=== PATIENT | female | born 1940 | race Caucasian/White ===

== ENCOUNTER 2023-08-10 10:38 | Emergency (ER) | payer OTHER ==
[~2023-08-10] VITALS: Ht 152.4 cm; Wt 55.3 kg
[~2023-08-10 10:38] MED LIST: EVI60 PO; LEVO0.5P PO; LOSA-272 PO; SIMV-31 PO; ZOLP10TA1
[2023-08-10 10:57] VITALS: BP 141/72; PULSE 94; RESP 18; TEMP 99.6; O2SAT 93
[2023-08-10] MEDS ORDERED: ACETAMINOPHEN EXTRA STRENGTH 500 MG TAB PO ONE (11:55)
[2023-08-10 12:06] LABS: FLU A ANTIGEN negative (NEGATIVE); FLU B ANTIGEN negative (NEGATIVE)
[2023-08-10 12:06] LABS: BASOPHILS # (AUTO) 0.1 K/uL (0.00-0.22); EOSINOPHILS # (AUTO) 0.1 K/uL (0-0.4); EOSINOPHILS % (AUTO) 1.5 % (0.0-4.0); HEMOGLOBIN 14.3 g/dL (12.0-16.0); LYMPHOCYTES # (AUTO) 1.1 K/uL (2.5-16.5); LYMPHOCYTES % (AUTO) 18.2 % (20.5-51.1); MEAN CORPUSCULAR HEMOGLOBIN 30 pg (27-31); MEAN CORPUSCULAR HGB CONC 34 g/dL (33-37); MEAN CORPUSCULAR VOLUME 88.9 fL (80-94); MONOCYTES # (AUTO) 1.1 K/uL (0.8-1.0); MONOCYTES % (AUTO) 17.9 % (1.7-9.3); NEUTROPHILS # (AUTO) 3.7 K/uL (1.8-7.7); NEUTROPHILS % (AUTO) 61.4 % (42.2-75.2); PLATELET COUNT (AUTO) 167 K/uL (140-450); RED BLOOD CELL COUNT(AUTO) 4.73 MIL/uL (4.20-5.40); RED CELL DISTRIBUTION WIDTH 13.1 % (11.6-13.7); WHITE BLOOD COUNT (AUTO) 6.1 K/uL (4.8-10.8)
[2023-08-10 12:20] LABS: ALANINE AMINOTRANSFERASE 28 U/L (12-78); ALBUMIN 3.4 g/dL (3.4-5.0); ALKALINE PHOSPHATASE 66 U/L (50-136); ANION GAP 10.8 (8-16); ASPARTATE AMINOTRANSFERASE 25 U/L (15-37); CALCIUM 8.6 mg/dL (8.5-10.1); CARBON DIOXIDE 29.9 mmol/L (21-32); CHLORIDE 91 mmol/L (98-107); CREATININE 0.8 mg/dL (0.6-1.3); GLUCOSE 132 mg/dL (74-106); POTASSIUM 3.7 mmol/L (3.5-5.1); SODIUM SERUM 128 mmol/L (136-145); TOTAL BILIRUBIN 0.7 mg/dL (0.0-1.0); TOTAL PROTEIN, SERUM 7.4 g/dL (6.4-8.2); UREA NITROGEN, BLOOD 13 mg/dL (7-18)
[2023-08-10 12:23] LABS: INR 0.94 (0.8-1.2); PARTIAL THROMBOPLASTIN TIME 30.7 secs (22-35.6); PROTHROMBIN TIME 9.9 secs (10.8-13.4)
[2023-08-10] MEDS ORDERED: SODIUM CHLORIDE 1 GM TAB PO ONE (12:45)
[2023-08-10] MEDS ORDERED: ALBUTEROL 0.083% 2.5 MG/3 ML NEBU INH ONE (13:10)
[2023-08-10] MEDS ORDERED: BENZ200C4 PO (13:21)
[2023-08-10] MEDS ORDERED: ROBAC PO (13:21)
[2023-08-10] MEDS ORDERED: AMOX1TAB8 PO (13:21)
[2023-08-10 14:04] VITALS: BP 141/72; PULSE 94; RESP 18; TEMP 99.6; O2SAT 93
== END 2023-08-10 14:04 | disposition home or self-care (01) ==
LOC: MED 10:38
DX: J20.9 Acute bronchitis, unspecified (principal); Z20.822 Contact with and (suspected) exposure to COVID-19; I10 Essential (primary) hypertension; E03.9 Hypothyroidism, unspecified; Z79.899 Other long term (current) drug therapy
CPT/HCPCS: 36415; 71045; 80053; 83880; 84484; 85025; 85379; 85610; 85730; 87426; 87804; 93005; 94640; 99285; J7613